=== PATIENT | male | born 1980 | race Caucasian/White ===

== ENCOUNTER 2017-01-07 10:49 | Emergency (ER) | payer OTHER ==
[~2017-01-07] VITALS: Ht 177.8 cm; Wt 68.2 kg
[~2017-01-07 10:49] MED LIST: ATARAX,VISTARIL50 MG PO; ATIVAN1 MG PO; ATORVASTATIN CALCIUM; XANAX0.5 MG PO; XANAX1 MG PO
[2017-01-07 13:22] LABS: BASOPHIL COUNT 0.1 K/uL (0-0.1); EOSINOPHIL (%) 1.5 % (0-5); EOSINOPHIL COUNT 0.2 K/uL (0-0.3); HEMATOCRIT 38.1 % (38.0-50.0); IMMATURE GRANULOCYTE (%) 0.3 % (0.0-0.7); INSTRUMENT ABS NEUTROPHIL CT 5.9 K/uL; LYMPHOCYTE COUNT 2.6 K/uL (1.0-2.8); MCHC 34.4 G/DL (30.0-36.0); MCV 87.2 FL (86-99); MEAN PLAT.VOLUME 10.4 uM^3 (9.0-12.4); MONOCYTE (%) 11.6 % (3-12); MONOCYTE COUNT 1.1 K/uL (0-0.8); NEUTROPHIL (%) 60.1 % (45-76); NEUTROPHIL COUNT 5.9 K/uL (1.8-6.4); PLATELET COUNT 271 K/uL (156-360); RBC DIS.WIDTH-CV 11.9 % (11.8-14.6); RBC DIS.WIDTH-SD 38.7 % (39-53); RED BLOOD COUNT 4.37 M/uL (4.00-5.50); WHITE BLOOD COUNT 9.9 K/uL (4.1-10.2)
[2017-01-07 13:25] LABS: ADD MIUA? NO; BILIRUBIN NEGATIVE; BLOOD NEGATIVE; COLOR YELLOW ((YELLOW)); GLUCOSE (STRIP) NEGATIVE; KETONES 5; LEUKOCYTES NEGATIVE; NITRITE NEGATIVE; PROTEIN (STRIP) NEGATIVE; SPECIFIC GRAVITY 1.019 (1.000-1.030); UROBILINOGEN 0.2 MG/DL (0.2-1.0)
[2017-01-07 13:39] LABS: CHLORIDE 105 mEq/L (99-109); POTASSIUM 4.2 mEq/L (3.7-5.4); SODIUM 140 mEq/L (136-147)
[2017-01-07 13:41] LABS: GLUCOSE 99 mg/dL (70-99)
[2017-01-07 13:42] LABS: ANION GAP 11 MEQ/L (2-14)
[2017-01-07 13:43] LABS: TOTAL BILIRUBIN 1.3 mg/dL (0.0-1.0)
[2017-01-07 13:44] LABS: SERUM ETHYL ALCOHOL < 10 mg/dL
[2017-01-07 13:45] LABS: GFR ESTIMATE (CALCULATED) > 59 mL/min/
[2017-01-07 13:46] LABS: ALKALINE PHOSPHATASE 75 IU/L (3-129)
[2017-01-07 13:47] LABS: DIRECT BILIRUBIN 0.4 mg/dL (0.0-0.3); UREA NITROGEN (BUN) 13 mg/dL (9-23)
[2017-01-07 13:48] LABS: SALICYLATE < 5.0 MG/DL (15-30)
[2017-01-07 13:48] LABS: THC CANNABINOIDS NEGATIVE (50 ng/mL)
[2017-01-07 13:49] LABS: ADD MEDTOX COMMENT Y; AMPHETAMINE NEGATIVE (500 ng/mL); BARBITURATES NEGATIVE (200 ng/mL); BENZODIAZEPINES NEGATIVE (150 ng/mL); COCAINE PRESUMPTIVE POSITIVE (150 ng/mL); INTERNAL CONTROLS VALID? YES; METHADONE NEGATIVE (200 ng/mL); METHAMPHETAMINE NEGATIVE (500 ng/mL); OPIATES (MORPHINE) NEGATIVE (100 ng/mL); OXYCODONE NEGATIVE (100 ng/mL); PHENCYCLIDINE NEGATIVE (25 ng/mL); PROPOXYPHENE NEGATIVE (300 ng/mL); TRICYCLIC ANTIDEPRESSANTS NEGATIVE (300 ng/mL)
[2017-01-07] MEDS ORDERED: ATARAX,VISTARIL50 MG PO (14:40)
[2017-01-07 14:48] VITALS: BP 112/72
== END 2017-01-07 14:49 | disposition home or self-care (01) ==
LOC: EME 10:49
PROVIDERS: Emergency Medicine
DX: F41.0 Panic disorder [episodic paroxysmal anxiety] (principal); F19.10 Other psychoactive substance abuse, uncomplicated; F32.9 Major depressive disorder, single episode, unspecified; E78.5 Hyperlipidemia, unspecified; F17.200 Nicotine dependence, unspecified, uncomplicated
CPT/HCPCS: 80048; 80076; 81003; 84999; 85025; 90839; 93005; 99281; 99283; G0480

== ENCOUNTER 2017-04-11 06:35 | Emergency (ER) | payer OTHER ==
[~2017-04-11] VITALS: Ht 177.8 cm; Wt 72.7 kg
[2017-04-11 06:43] VITALS: BP 131/97
== END 2017-04-11 08:37 | disposition left against medical advice (07) ==
LOC: EME 06:35
DX: T40.1X1A Poisoning by heroin, accidental (unintentional), initial encounter (principal); E78.5 Hyperlipidemia, unspecified; F41.9 Anxiety disorder, unspecified; F17.200 Nicotine dependence, unspecified, uncomplicated; Z87.898 Personal history of other specified conditions
CPT/HCPCS: J2310